=== PATIENT | female | born 1970 | race African-American/Black ===

== ENCOUNTER 2017-01-07 20:41 | Emergency (ER) | payer MEDICAID ==
[~2017-01-07] VITALS: Ht 157.5 cm; Wt 49.9 kg
[~2017-01-07 20:41] MED LIST: BUSPAR 10MG TAB10 MG PO; CIPRO 500MG TA500 MG PO; DEPAKOTE 500MG500 MG PO; ESTRADIOL0.5 MG PO; FLUTICASONE 50M16 GM; HYDROXYZINE 25M25 MG PO; IBUPROFEN 600M600 MG PO; LORATADINE 10MG10 M1 PO; MIRALAX(PO17 GM/1 PA PO; Oxycodone5 MG PO; RISPERDAL 1 MG T1 MG PO; TRAZADONE HYDR100 MG PO; Tramadol HCl50 MG PO; VENLAFAXINE HCL75 M1 PO; ZOFRAN ODT4 MG PO
--- OUTSIDE RECORDS SUMMARY | 2017-01-07 21:13 | External Medical Summary Rpt | CCD ---
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 13 20 20 70 RE EX 90 17 17 50 5 53 PH SO AR D MA DR CY 25 0 MG TA B DI 29 12 02 14 14 00 ME Ac VA 30 -2 -1 .0 00 D ti LP 00 1- 7- 00 13 CA ve RO 13 20 20 48 RE EX 90 16 17 51 1 03 PH SO AR D KRISTI DR CY 25 LL 0 C MG TA B RI 00 01 02 30 30 00 ME Ac SP 37 -2 -1 .0 00 D ti ER 83 5- 7- 00 13 CA ve ID 51 20 20 64 RE ON 39 17 17 48 E 1 93 PH 3 AR MG MA CY TA BL LL ET C VE 13 01 02 30 30 00 ME Ac NL 81 -2 -1 .0 00 D ti AF 10 3- 7- 00 13 CA ve AX 71 20 20 63 RE IN 59 17 17 18 E 0 83 PH HC AR L MA ER CY 22 LL 5 C MG TA B TR 50 01 02 30 30 00 ME Ac AZ 11 -1 -1 .0 00 D ti OD 10 9- 0- 00 13 CA ve ON 43 20 20 56 RE E 30 17 17 44 50 3 39 PH AR MG MA CY TA BL LL ET C TR 65 01 02 30 7 00 ME Ac AM 16 -1 -1 .0 00 D ti AD 20 6- 0- 00 13 CA ve OL 62 20 20 61 RE 71 17 17 11 HC 1 17 PH L AR 50 MA CY MG LL TA C BL ET VE 00 01 02 30 30 00 ME Ac NL 09 -2 -1 .0 00 D ti AF 37 1- 0- 00 13 CA ve AX 38 20 20 62 RE IN 59 17 17 97 E 8 58 PH HC AR L MA ER CY 75 LL C MG CA P MA 00 01 02 60 5 00 ME Ac PA 90 -1 -1 .0 00 D ti P 41 7- 0- 00 13 CA ve 32 98 20 20 61 RE 5 26 17 17 61 MG 1 58 PH AR TA MA BL CY ET LL C DI 62 01 02 90 30 00 ME Ac VA 75 -0 -1 .0 00 D ti LP 60 9- 0- 00 13 CA ve RO 79 20 20 56 RE EX 61 17 17 44 3 36 PH SO AR D MA DR CY 12 LL 5 C MG TA B PO 00 01 02 25 15 00 ME Ac LY 57 -1 -1 5. 00 D ti ET 40 0- 0- 00 13 CA ve HY 41 20 20 0 58 RE LE 20 17 17 02 NE 2 17 PH AR GL MA YC CY OL LL 33 C 50 PO WD IB 55 01 02 30 8 00 ME Ac UP 11 -0 -0 .0 00 D ti RO 10 2- 3- 00 13 CA ve FE 68 20 20 53 RE N 40 17 17 99 80 5 76 PH 0 AR MG MA CY TA BL LL ET C VE 00 12 01 30 30 00 ME Ac NL 09 -2 -2 .0 00 D ti AF 37 6- 0- 00 13 CA ve AX 38 20 20 49 RE IN 59 16 17 81 E 8 65 PH HC AR L MA ER CY 75 LL C MG CA P RI 00 12 01 30 30 00 ME Ac SP 37 -2 -2 .0 00 D ti ER 83 6- 0- 00 13 CA ve ID 51 20 20 49 RE ON 39 16 17 81 E 1 63 PH 3 AR MG MA CY TA BL LL ET C CY 00 12 01 30 10 00 ME Ac CL 60 -2 -1 .0 00 D ti OB 33 0- 3- 00 13 CA ve EN 07 20 20 48 RE ZA 82 16 17 23 AK 1 10 PH IN AR E MA 5 CY MG LL TA C BL ET TR 50 12 01 20 30 00 ME Ac AZ 11 -1 -1 .0 00 D ti OD 10 9- 3- 00 13 CA ve ON 43 20 20 46 RE E 30 16 17 94 50 1 29 PH AR MG MA CY TA BL LL ET C PO 00 12 01 25 15 00 ME Ac LY 57 -2 -1 5. 00 D ti ET 40 0- 3- 00 13 CA ve HY 41 20 20 0 48 RE LE 20 16 17 23 NE 2 00 PH AR GL MA YC CY OL LL 33 C 50 PO WD DO 45 12 01 60 30 00 ME Ac CU 80 -2 -1 .0 00 D ti SA 20 0- 3- 00 13 CA ve TE 48 20 20 48 RE 67 16 17 24 SO 8 77 PH DI AR UM MA CY 10 0 LL MG C SO FT GE L VE 00 11 01 4. 2 00 ME Ac NL 09 -2 -0 00 00 D ti AF 37 6- 9- 0 13 CA ve AX 38 20 20 35 RE IN 30 16 17 34 E 1 06 PH HC AR L MA 10 CY 0 MG LL C TA BL ET Results Labs Lab Lab Date Result Refere Interp Status Commen Order Detail nces retati t Range on Valproate SerPl-mCnc (05-21-2016 07:48) Valproa 31 50-100 complet te 017 ug/mL ed SerPl-m 07:48 Cnc Comment: (NOTE) Comment: Valproic acid Levels: Comment: . Comment: Therapeutic: 50 - 100 ug/mL Comment: Supratherapeutic: Greater than 120 ug/mL Procedures Procedure DOS Code Location Performer Comment [facility] PER SERVICE SERVICE STATUTE MILE AMBULANCE A0429 [facility] SERVICE 7 AMBULANCE AMBULANCE BLS SERVICE SERVICE EMERGENCY TRANSPORT BLOOD 57638 [facility] COUNT 7 [facility] COMPLETE INC INC AUTO&AUTO DIFRNTL WBC URNLS DIP 72745 [facility]O 7 [facility] STICK/TAB INC INC LET REAGENT AUTO MICROSCOP Y COMPREHEN 84209 [facility] CASTRO SIVE 7 [facility] [place] [address] GL[facility]IA [facility]STRO AMYLASE 7 [place] [address] [facility] CASTRO INFUSION 7 [facility] THERAPY/P INC INC ROPHYLAXI S /DX 1ST TO 1 HR THERAPEUT 02427 [facility] IC 7 [facility] INJECTION [place] [address] GL[facility] CASTRO INFUSION 7 [facility] THER INC INC PROPH ADDL SEQUENTIA L TO 1 HR CULTURE 57897 GL[facility] CASTRO BACTERIAL 7 [facility] INC [place] [address] [place] WILL ABDOMEN & 7 MEDICAL PELVIS IMAGING W/[place] [address] GLORIA CASTRO LIPASE 7 [place] [address] [facility] ABDOMINAL 7 MEDICAL REAL IMAGING TIME ASS W/IMAGE LIMITED CULTURE 37452 GLORIA GLORIA BACTERIAL 7 [facility] BLOOD INC INC AEROBIC W/ID ISOLATES GROUND A0425 [facility] 7 AMBULANCE AMBULANCE PER SERVICE SERVICE STATUTE MILE AMBULANCE A0429 [facility] SERVICE 7 AMBULANCE AMBULANCE BLS SERVICE [place] [address] GLORIA GUIDEN AMYLASE 7 [facility] INC COMPREHEN 94856 GLORIA CASTRO SIVE 7 [facility] METABOLIC INC INC PANEL URNLS DIP 71225 GL[facility]IA OCAMPOON 7 [facility] STICK/TAB INC INC LET REAGENT AUTO MICROSCOP Y BLOOD 54423 [facility]IA CASTRO COUNT 7 [facility] COMPLETE INC INC AUTO&[place] [address] GLORIA GLORIA LIPASE 7 [place] [address] [place] ABDOMEN & 7 MEDICAL PELVIS IMAGING W/O ASS CONTRAST MATERIAL NONEMERG A0120 FEDERATED FEDERATED TRNSPRT: 7 [facility] TRANSPORT TRANSPORT MTN ATION SER ATION SER AREA/OTH SYS NONEMERG A0120 LKLP CAC LKLP TRNSPRT: 7 INC [facility]ION 9 N MTN AREA/OTH SYS NONEMERG A0120 LKLP CAC LKLP TRNSPRT: 7 INC [facility] 9 N MTN AREA/[place] [address] [facility] SURG 7 [facility] GROSS&ANNE ROSCOPIC EXAM ANESTHESI 94120 ANESTHESI DIANA A 7 A GROUP INTRAPERI PRACTICE TONEAL LOWER ABD W/LAPS NOS TOTAL 38192 SEVEN BEAVEN ABDOMINAL 7 [facility] W/WO RMVL TUBE OVARY CYTP C/V 03728 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 THIN 7 Y NISHA OF Y NISHA OF LYR YARED YARED PREPJ SCR H H MNL RESCR PHYS IADNA 19772 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 7 Y NISHA OF Y NISHA OF [place] YARED YARED VIRUS H H HIGH-RISK TYPES US PELVIC 77994 SEVEN DEMOS-ASHISH 6 KYLE TESFAYE NONOBSTET [facility] [place] [address] SEVEN DEMOS-ASHISH TRANSVAGI 6 KYLE TESFAYE NAL [facility] C IADNA 98826 LAB NISHA LAB NISHA CARITO 6 YARED YARED SPECIES HOLDINGS HOLDINGS AMPLIFIED PROBE TQ IADNA 58461 LAB NISHA LAB NISHA TRICHOMON 6 YARED YARED HOLDINGS HOLDINGS VAGINALIS AMPLIFIED PROBE TECH IADNA 95576 LAB NISHA LAB NISHA NEISSERIA 6 YARED YARED HOLDINGS HOLDINGS GONORRHOE AE AMPLIFIED PROBE TQ IADNA NOS 49106 LAB NISHA LAB NISHA 6 YARED YARED AMPLIFIED HOLDINGS HOLDINGS PROBE TQ EACH ORGANISM IADNA 52806 LAB NISHA LAB NISHA CHLAMYDIA 6 YARED YARED HOLDINGS HOLDINGS [place] [address] PROFESSIO BRITTANY HEAD/BRAI 6 NAL GLE N W/[place] [address] PROFESSIO GRISEL HEAD/BRAI 6 NAL LYNDON N W/[place] [address] PROFESSIO GRISEL CERVICAL 6 NAL LYNDON SPINE W/[place] [address] PROFESSIO KAROLINA RAY HEAD/BRAI 6 NAL N W/[place] [address] RICHAR MCQUEEN TRANSVAGI 6 [place] [address] BROOKS BROOKS ABDOMEN & 6 TUS TUS PELVIS W/CONTRAS T MATERIAL ECG 46767 CATHIE BRAND ROUTINE 5 CATA CATA ECG W/LEAST 12 LDS I&[place] [address] RADIOLOGY DOERGER ABDOMEN & 5 KIR PELVIS ASSOCIATE W/CONTRAS S OF NOTH T MATERIAL AMB A0427 [facility] SERVICE 5 FIRE FIRE ALS DEPT DEPT EMERGENCY TRANSPORT LEVEL 1 GROUND A0425 [facility] 5 FIRE FIRE PER DEPT DEPT STATUTE MILE GROUND A0425 [facility] FIRE FIRE PER DEPT DEPT STATUTE MILE AMB A0427 [facility] 5 FIRE FIRE ALS DEPT DEPT EMERGENCY TRANSPORT LEVEL 1 GROUND A0425 [facility] 5 FIRE FIRE PER DEPT DEPT STATUTE MILE AMBULANCE A0429 [facility] 5 FIRE FIRE BLS DEPT DEPT EMERGENCY TRANSPORT AMBULANCE A0429 [facility] 5 FIRE FIRE BLS DEPT DEPT EMERGENCY TRANSPORT GROUND A0425 [facility] 5 FIRE FIRE PER DEPT DEPT STATUTE MILE GROUND A0425 [facility] 5 FIRE FIRE PER DEPT DEPT STATUTE MILE AMB A0427 [facility] SERVICE 5 FIRE FIRE ALS DEPT DEPT EMERGENCY TRANSPORT LEVEL 1 AMB A0427 [facility] 5 FIRE FIRE ALS DEPT DEPT EMERGENCY TRANSPORT LEVEL 1 GROUND A0425 [facility] 5 FIRE FIRE PER DEPT DEPT STATUTE MILE RADIOLOGI 91558 [facility] EX[facility] KAYLENE CHEST 2 ASSOCIATE VIEWS S OF NOTH FRONTAL&L ATERAL ECG [address] [facility] ROUTINE [address] ECG MED CTR W/LEAST 12 LDS I&R ONLY RADIOLOGI 75542 RADIOLOGY FERNANDA C EXAM 5 CORNELIO CHEST 2 ASSOCIATE VIEWS S OF NOTH FRONTAL&L ATERAL RADIOLOGI 60912 RADIOLOGY GULUZIAN C EXAM 5 MEME CHEST 2 ASSOCIATE VIEWS S OF NOTH FRONTAL&L ATERAL RADIOLOGI 14576 RADIOLOGY ARACELI C EXAM 4 CHR CHEST 2 ASSOCIATE VIEWS S OF NOTH FRONTAL&L ATERAL GROUND A0425 [facility] 4 FIRE FIRE PER DEPT DEPT STATUTE MILE AMB A0427 [facility] SERV[facility] 4 FIRE FIRE ALS DEPT [place] [address] RADIOLOGY DOERGER ABDOMEN & 4 KIR PELVIS ASSOCIATE W/O S OF NOTH CONTRAST MATERIAL AMB A0427 [facility] 4 FIRE FIRE ALS DEPT DEPT EMERGENCY TRANSPORT LEVEL 1 GROUND A0425 [facility] MILEAGE 4 FIRE FIRE PER DEPT DEPT STATUTE MILE RADIOLOGI 20264 MEDICAL HERFEL C EXAM 4 X-RAY INC GERALD CHEST 2 VIEWS FRONTAL&L ATERAL RADEX 03018 MEDICAL HUELSMAN RIBS 4 X-RAY INC LYNDON UNILATERA L 2 VIEWS RADIOLOGI 10222 MEDICAL MERANUS C EXAM 4 X-RAY INC JAM CHEST 2 VIEWS FRONTAL&[place] [address] RADIOLOGY DOERGER MAXILLOFA 4 KIR CIAL W/O ASSOCIATE CONTRAST S OF NOTH MATERIAL ECG 38[address] [facility] CHR ROUTINE 4 DARCY ECG MED CTR W/LEAST 12 LDS I&R ONLY RADIOLOGI 22783 RADIOLOGY NEILS REMY C EXAM 4 CHEST 2 ASSOCIATE VIEWS S [place] NOTH FRONTAL&[place] [address] RADIOLOGY HURST CHATA TRANSVAGI 4 NAL ASSOCIATE S OF NOTH [place] PELVIC 19329 RADIOLOGY HURST CHATA 4 NONOBSTET ASSOCIATE SAMARA S OF NOT REAL-TIME IMAGE COMPLETE RADEX 78274 MEDICAL BECKES SPINE 4 X-RAY INC ANG LUMBOSACR AL 2/3 VIEWS RADEX 07373 MEDICAL MERANUS SPINE 4 X-RAY [place] [address] [place] [address] MEDICAL BECKES HEAD/BRAI 4 X-RAY INC ANG N W/O CONTRAST MATERIAL RADEX 60824 MEDICAL HERFEL RIBS 4 X-RAY INC GERALD UNILATERA L 2 VIEWS AMB A0427 [facility] 4 FIRE FIRE ALS DEPT DEPT EMERGENCY TRANSPORT LEVEL 1 GROUND A0425 [facility] 4 FIRE FIRE PER DEPT DEPT STATUTE MILE GROUND A0425 [facility] 4 FIRE FIRE PER DEPT DEPT STATUTE MILE AMB A0427 [facility] SERV[facility] 4 FIRE FIRE ALS DEPT DEPT EMERGENCY TRANSPORT LEVEL 1 RADIOLOGI 09553 RACQUEL RACUQEL C 4 ANASTASIA ANASTASIA EXAMINATI ON CHEST SINGLE VIEW FRONTAL GROUND A0425 [facility] 4 FIRE FIRE PER DEPT DEPT STATUTE MILE AMB A0427 [facility] SERV[facility] 4 FIRE FIRE ALS DEPT DEPT EMERGENCY TRANSPORT LEVEL 1 RADIOLOGI 03858 FLINK CAR FLINK CAR C EXAM 4 CHEST 2 VIEWS FRONTAL&L ATERAL AMBULANCE A0429 [facility] SERV[facility] 4 FIRE FIRE BLS DEPT DEPT EMERGENCY TRANSPORT GROUND A0425 [facility] 4 FIRE [place] [address] ITRI ANASTASIA ITRI ANASTASIA ABDOMEN & 4 PELVIS W/CONTRAS T MATERIAL RADIOLOGI 17602 ANTHONY ANTHONY C EXAM 4 PANKAJ PANKAJ CHEST 2 VIEWS FRONTAL&[place] [address] PARSEE PARSEE HEAD/BRAI 4 ART ART N W/O CONTRAST MATERIAL GROUND A0425 [facility] 4 FIRE FIRE PER DEPT DEPT STATUTE MILE AMBULANCE A0429 [facility] 4 FIRE FIRE BLS DEPT DEPT EMERGENCY TRANSPORT GROUND A0425 [facility] 4 FIRE FIRE PER DEPT DEPT STATUTE MILE ECG 73355 [facility] ROUTINE [address] ECG MED CTR W/LEAST 12 LDS I&R ONLY AMB A0427 [facility] SERVICE 4 FIRE FIRE ALS DEPT DEPT EMERGENCY TRANSPORT LEVEL 1 RADIOLOGI 53797 MAYA MAYA C EXAM 4 ANI ANI CHEST 2 VIEWS FRONTAL&L ATERAL Encounters Encounter Start End Date Code Location Performer Type Date EMERGENCY 84328 JAVY SINGH, KANIKAT 7 7 PHYSICIAN JR VISIT S, PLLC HIGH SEVERITY& THREAT FUNCJ EMERGENCY 64305 GL[facility]IA 7 7 [facility] INC T VISIT HIGH/URGE NT SEVERITY HOSPITAL GLORIA - 7 7 [facility] OUTPATIEN [facility] GLORIA - 7 7 [facility] OUTPATIEN [facility] GLORIA - 7 7 [facility] OUTPATIEN [facility] EMERGENCY 92411 JAVY BRASHER DEPT 7 7 PHYSICIAN VISIT S, PLLC HIGH SEVERITY& THREAT FUNCJ EMERGENCY 50568 GLORIA 7 7 [facility] DEPARTMEN [facility] T VISIT HIGH/URGE NT SEVERITY EMERGENCY 17247 COMPASS GILDA 7 7 EMERGENCY DEPARTMEN T VISIT PHYSICIAN LOW/MODER S SEVERITY OFFICE 70037 [facility] OUTPATIEN 7 7 [facility] T VISIT [facility]OM[facility]' 25 [facility]ALTH C MINUTES OFFICE 11482 [facility] OUTPATIEN 7 7 [facility] T VISIT WOMEN 10 HEALTH C MINUTES OFFICE 60559 [facility] OUTPATIEN 6 6 [facility] BRIEN T NEW 20 WOMEN'S MINUTES HEALTH C EMERGENCY 37131 EMERGENCY STADNIK 6 6 DEPARTMEN PROFESSIO T VISIT NAL SERVI MODERATE SEVERITY EMERGENCY 17923 EMERGENCY STADNIK 6 6 DEPARTMEN PROFESSIO T VISIT NAL SERVI HIGH/URGE NT SEVERITY EMERGENCY 61921 EMERGENCY RAY KATHRIN DEPT 6 6 VISIT PROFESSIO HIGH NAL SERVI SEVERITY& THREAT FUNCJ EMERGENCY 04416 [facility] CARLIN GRAEME 6 6 EMERGENCY DEPARTMEN T VISIT PHYSICIAN HIGH/URGE S NT SEVERITY EMERGENCY 55622 [facility] JESSICA CHIKI 5 5 EMERGENCY DEPARTMEN T VISIT PHYSICIAN HIGH/URGE S NT SEVERITY EMERGENCY 10097 [facility] CYNDY 5 5 EMERGENCY KRI DEPARTMEN T VISIT PHYSICIAN HIGH/URGE S NT SEVERITY EMERGENCY 38022 HOUSTON ANNE HOUSTON ANNE 5 5 DEPARTMEN T VISIT HIGH/URGE NT SEVERITY EMERGENCY 59190 CATHIE BRAND DEPT 5 5 CATA CATA VISIT HIGH SEVERITY& THREAT FUNCJ EMERGENCY 29017 [facility] GREVER 5 5 EMERGENCY MAR DEPARTMEN T VISIT PHYSICIAN HIGH/URGE S NT SEVERITY EMERGENCY 72943 JORGE LUIS KANG KAYLENE DEPT 5 5 VISIT HIGH SEVERITY& THREAT FUNCJ EMERGENCY 14189 LOCASTO LOCASTO 5 5 DON DON DEPARTMEN T VISIT HIGH/URGE NT SEVERITY EMERGENCY 01991 COMPASS BINH 5 5 EMERGENCY KATHRIN DEPARTMEN T VISIT PHYSICIAN MODERATE S SEVERITY EMERGENCY 76277 COMPASS EVAN 5 5 EMERGENCY LAR DEPARTMEN T VISIT PHYSICIAN HIGH/URGE S NT SEVERITY EMERGENCY 14934 COMPASS TESFAYE GRAEME 5 5 EMERGENCY DEPARTMEN T VISIT PHYSICIAN HIGH/URGE S NT SEVERITY EMERGENCY 45802 [facility] NEEMA LIS 5 5 EMERGENCY DEPARTMEN T VISIT PHYSICIAN HIGH/URGE S NT SEVERITY EMERGENCY 48957 [facility] CYNDY 5 5 EMERGENCY KRI DEPARTMEN T VISIT PHYSICIAN HIGH/URGE S NT SEVERITY EMERGENCY 67715 COMPASS SOWER LYNDON 5 5 EMERGENCY DEPARTMEN T VISIT PHYSICIAN HIGH/URGE S NT SEVERITY EMERGENCY 93641 [facility] BRACKEN 5 5 EMERGENCY LYNDON DEPARTMEN T VISIT PHYSICIAN HIGH/URGE S NT SEVERITY EMERGENCY 17864 COMPASS SOWER LYNDON 5 5 EMERGENCY DEPARTMEN T VISIT PHYSICIAN MODERATE S SEVERITY EMERGENCY 22444 EMERGENCY ADE DEPT 5 5 MEME VISIT PROFESSIO HIGH NAL SERVI SEVERITY& THREAT FUNCJ EMERGENCY 75991 ST PETE Gay 4 4 DARCY MUÑOZTEODORO DEPARTMEN MED CTR T VISIT HIGH/URGE NT SEVERITY EMERGENCY 65843 ST BRANDIE 4 4 DARCY MAR DEPARTMEN MED CTR T VISIT HIGH/URGE NT SEVERITY EMERGENCY [address] [facility] 4 4 DARCYEVIN BEY DEPARTMEN MED CTR T VISIT HIGH/URGE NT SEVERITY EMERGENCY 85500 QUALIFIED ZACHARY 4 4 KUR DEPARTMEN EMERGENCY T VISIT SPECIALI LOW/MODER SEVERITY EMERGENCY 03825 [facility] DEPT 4 4 DARCY ANT VISIT MED CTR HIGH SEVERITY& THREAT FUNCJ EMERGENCY 94326 EMERGENCY GREWAL 4 4 CRUZ DEPARTMEN PROFESSIO T VISIT NAL SERVI HIGH/URGE NT SEVERITY EMERGENCY 20965 EMERGENCY ALLEN DEPT 4 4 GRAEEM VISIT PROFESSIO HIGH NAL SERVI SEVERITY& THREAT FUNCJ EMERGENCY 37088 EMERGENCY GREWAL 4 4 CRUZ DEPARTMEN PROFESSIO T VISIT NAL SERVI HIGH/URGE NT SEVERITY EMERGENCY 61592 [facility] 4 4 [facility]ISIT HIGH/URGE NT SEVERITY EMERGENCY 06731 EMERGENCY ZOË CORNELIO 4 4 DEPARTMEN PROFESSIO T VISIT NAL SERVI MODERATE SEVERITY EMERGENCY 58591 EMERGENCY CULYER 4 4 VIR DEPARTMEN PROFESSIO T VISIT NAL SERVI MODERATE SEVERITY EMERGENCY 65853 [facility] MING VISIT EMERGENCY HIGH SPECIALI SEVERITY& THREAT FUNCJ EMERGENCY 16033 EMERGENCY RAY KATHRIN 4 4 DEPARTMEN PROFESSIO T VISIT NAL SERVI MODERATE SEVERITY EMERGENCY 24296 ST CYNDY DEPT 4 4 DARCY KRI VISIT MED CTR HIGH SEVERITY& THREAT FUNCJ EMERGENCY 18113 ST CARLIN GRAEME DEPT 4 4 DARCY VISIT MED CTR HIGH SEVERITY& THREAT FUNCJ EMERGENCY 62969 EMERGENCY ABDULLAH 4 4 ANT DEPARTMEN PROFESSIO T VISIT NAL SERVI MODERATE SEVERITY EMERGENCY 49730 EMERGENCY RAY KATHRIN DEPT 4 4 VISIT PROFESSIO HIGH NAL SERVI SEVERITY& THREAT FUNCJ EMERGENCY 11712 ST TREVIÑO 4 4 DARCY HANEY DEPARTMEN MED CTR T VISIT LOW/MODER SEVERITY EMERGENCY 25981 LOCASTO LOCASTO 4 4 DON DON DEPARTMEN T VISIT HIGH/URGE NT SEVERITY EMERGENCY [address] ST TESFAYE BEDOLLA 4 4 DARCY DEPARTMEN MED CTR T VISIT HIGH/URGE NT SEVERITY EMERGENCY 30437 JORGE LUIS MAURICE 4 4 DEPARTMEN T VISIT HIGH/URGE NT SEVERITY EMERGENCY [address]70 ST SCHAFER 4 4 DARCY DAV DEPARTMEN MED CTR T VISIT HIGH/URGE NT SEVERITY EMERGENCY 35017 DENA FERNANDES 4 4 DAYO DAYO DEPARTMEN T VISIT HIGH/URGE NT SEVERITY EMERGENCY [address] ST [facility] DEPT 4 4 DARCY LAR VISIT MED CTR HIGH SEVERITY& THREAT FUNCJ EMERGENCY 54521 [facility] 4 4 DARCY LAR DEPARTMEN MED CTR T VISIT HIGH/URGE NT SEVERITY EMERGENCY 04810 OSWALD AKERS 4 4 REMY REMY DEPARTMEN T VISIT MODERATE SEVERITY EMERGENCY [address] ST TESFAYE BEDOLLA DEPT 4 4 DARCY VISIT MED CTR HIGH SEVERITY& THREAT FUNCJ EMERGENCY [address]144 ST HOANG 4 4 DARCY MEME DEPARTMEN MED CTR T VISIT MODERATE SEVERITY EMERGENCY 27463 LOCASTO LOCASTO 4 4 DON DON DEPARTMEN T VISIT HIGH/URGE NT SEVERITY EMERGENCY [address]00 ST TESFAYE BEDOLLA DEPT 4 4 DARCY VISIT MED CTR HIGH SEVERITY& THREAT FUNCJ EMERGENCY [address]307 ST PARRY MAX DEPT 4 4 DARCY VISIT MED CTR HIGH SEVERITY& THREAT FUNCJ EMERGENCY 74629 JENNI Lance 4 4 [facility] T VISIT HIGH/URGE NT SEVERITY EMERGENCY 86021 JUAN MARTINEZ 4 4 ANASTASIA OCONNOR [facility] T VISIT HIGH/URGE NT SEVERITY EMERGENCY 78519 ROSEMARIE HOUSTON ANNE DEPT 4 4 VISIT HIGH SEVERITY& THREAT FUNCJ EMERGENCY 27947 DENA FERNANDES 4 4 DAYO OSHEA [facility] T VISIT HIGH/URGE NT SEVERITY
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
[2017-01-07 21:18] LABS: URINE BILIRUBIN - DIPSTICK NEGATIVE (NEG); URINE BLOOD NEGATIVE (NEG)
--- OUTSIDE RECORDS SUMMARY | 2017-01-07 21:18 | External Medical Summary Rpt | CCD ---
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 98239 [facility] 5 5 MEME VISIT PROFESSIO HIGH NAL SERVI SEVERITY& THREAT FUNCJ EMERGENCY 92828 ST PETE Gay 4 4 DARCY [place] DEPARTMEN MED CTR T VISIT HIGH/URGE NT SEVERITY EMERGENCY 69466 [facility] 4 4 DARCY BEY DEPARTMEN MED CTR T VISIT HIGH/URGE NT SEVERITY EMERGENCY 81408 [facility] 4 4 DARCYEVIN BEY DEPARTMEN MED CTR T VISIT HIGH/URGE NT SEVERITY EMERGENCY 50375 QUALIFIED ZACHARY 4 4 KUR DEPARTMEN EMERGENCY T VISIT SPECIALI LOW/MODER SEVERITY EMERGENCY 43360 EMERGENCY GREWAL 4 4 CRUZ DEPARTMEN PROFESSIO T VISIT NAL SERVI HIGH/URGE NT SEVERITY EMERGENCY 02209 [facility] DEPT 4 4 DARCY NUNEZ VISIT MED CTR HIGH SEVERITY& THREAT FUNCJ EMERGENCY 63185 EMERGENCY BLOOMINGDALE DEPT 4 4 GRAEME VISIT PROFESSIO HIGH NAL SERVI SEVERITY& THREAT FUNCJ EMERGENCY 78819 EMERGENCY GREWAL 4 4 CRUZ DEPARTMEN PROFESSIO T VISIT NAL SERVI HIGH/URGE NT SEVERITY EMERGENCY 79460 ST KEN 4 4 DARCY ANT DEPARTMEN MED CTR T VISIT HIGH/URGE NT SEVERITY EMERGENCY 98880 EMERGENCY ZOË CORNELIO 4 4 DEPARTMEN PROFESSIO T VISIT NAL SERVI MODERATE SEVERITY EMERGENCY 99982 QUALIFIED ROHLING DEPT 4 4 MING VISIT EMERGENCY HIGH SPECIALI SEVERITY& THREAT FUNCJ EMERGENCY 66643 EMERGENCY CULYER 4 4 VIR DEPARTMEN PROFESSIO T VISIT NAL SERVI MODERATE SEVERITY EMERGENCY 26275 [facility] DEPT 4 4 DARCY KRI VISIT MED CTR HIGH SEVERITY& THREAT FUNCJ EMERGENCY 87420 EMERGENCY RAY KATHRIN 4 4 DEPARTMEN PROFESSIO T VISIT NAL SERVI MODERATE SEVERITY EMERGENCY 03855 ST TESFAYE BEDOLLA DEPT 4 4 DARCY VISIT MED CTR HIGH SEVERITY& THREAT FUNCJ EMERGENCY 56318 EMERGENCY [facility] 4 4 ANT DEPARTMEN PROFESSIO T VISIT NAL SERVI MODERATE SEVERITY EMERGENCY 07811 EMERGENCY RAY KATHRIN DEPT 4 4 VISIT PROFESSIO HIGH NAL SERVI SEVERITY& THREAT FUNCJ EMERGENCY 28965 [facility] 4 4 DARCY HANEY DEPARTMEN MED CTR T VISIT LOW/MODER SEVERITY EMERGENCY 89861 LOCASTO LOCASTO 4 4 DON DON DEPARTMEN T VISIT HIGH/URGE NT SEVERITY EMERGENCY 12413 ST TESFAYE BEDOLLA 4 4 DARCY DEPARTMEN MED CTR T VISIT HIGH/URGE NT SEVERITY EMERGENCY 99279 JORGE LUIS KANG KAYLENE 4 4 DEPARTMEN T VISIT HIGH/URGE NT SEVERITY EMERGENCY 43310 ST SCHAFER 4 4 DARCY LYNDON DEPARTMEN MED CTR T VISIT HIGH/URGE NT SEVERITY EMERGENCY 04928 DENA FERNANDES 4 4 DAYO OSHEA DEPARTMEN T VISIT HIGH/URGE NT SEVERITY EMERGENCY 92012 [facility] DEPT 4 4 DARCY LAR VISIT MED CTR HIGH SEVERITY& THREAT FUNCJ EMERGENCY 08138 OSWALD AKERS 4 4 REMY REMY DEPARTMEN T VISIT MODERATE SEVERITY EMERGENCY 36188 [facility] 4 4 DARCY LAR DEPARTMEN MED CTR T VISIT HIGH/URGE NT SEVERITY EMERGENCY 37795 ST CARLIN GRAEME DEPT 4 4 DARCY VISIT MED CTR HIGH SEVERITY& THREAT FUNCJ EMERGENCY 25443 ST HAONG 4 4 DARCY MEME DEPARTMEN MED CTR T VISIT MODERATE SEVERITY EMERGENCY 59924 LOCASTO LOCASTO 4 4 DON DON DEPARTMEN T VISIT HIGH/URGE NT SEVERITY EMERGENCY 78042 ST CARLIN GRAEME DEPT 4 4 DARCY VISIT MED CTR HIGH SEVERITY& THREAT FUNCJ EMERGENCY 53683 ST PARRY MAX DEPT 4 4 DARCY VISIT MED CTR HIGH SEVERITY& THREAT FUNCJ EMERGENCY 24177 JENNI Lance 4 4 DEPARTMEN T VISIT HIGH/URGE NT SEVERITY EMERGENCY 34067 JUAN MARTINEZ 4 4 ANASTASIA OCONNOR DEPARTMEN T VISIT HIGH/URGE NT SEVERITY EMERGENCY 21170 ROSEMARIE HOUSTON ANNE DEPT 4 4 VISIT HIGH SEVERITY& THREAT FUNCJ EMERGENCY 01548 DENA FERNANDES 4 4 DAYO DAYO DEPARTMEN T VISIT HIGH/URGE NT SEVERITY
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
--- OUTSIDE RECORDS SUMMARY | 2017-01-07 21:19 | External Medical Summary Rpt ---
Author Author MEG Villarreal, PathogenetixAYESHA Qello Organization [employer] Address Unknown Phone Unavailable Payers Section Payer Plan Name Group ID Member ID Coverage Coverage Start End Date Date DREW [id number] Mar 21 No [employer] HCARE 999 2011 informati E MDR OF [place] on in MDR source data
--- OUTSIDE RECORDS SUMMARY | 2017-01-07 21:19 | External Medical Summary Rpt | CCD ---
Demographics Home Phone Preferred Language Vincentian Marital Status Unknown Anabaptist Affiliation Unknown Race Unknown Ethnic Group Unknown Author Author , MEG WEAVER Address Unknown Phone [email or web address] Immunization Name Date Rout CVX Reac Dose Comm Prov Is Faci e tion ent ider Refu lity Give sed n TST- 10-1 96 999 Hist 1005 No 1005 PPD 2-20 oric 00 00 intr 16 al ader Info mal rmat ion - Sour ce Unsp ecif ied Infl 10-0 88 999 Hist 1005 No 1005 uenz 1-20 oric 00 00 a, 16 al UF Info rmat ion - Sour ce Unsp ecif ied Infl 09-1 Intr 88 999 Hist NAT No ANT uenz 2-20 ader oric LO LO a, 14 mal al UF Info rmat ion - Sour ce Unsp ecif ied PPV2 09-1 33 999 Hist NAT No NAT 3 2-20 oric LO LO 14 al Info rmat ion - Sour ce Unsp ecif ied
--- OUTSIDE RECORDS SUMMARY | 2017-01-07 21:19 | External Medical Summary Rpt ---
Author Author MEG Villarreal, PeekAYESHA Twingly Organization [employer] Address Unknown Phone Unavailable Payers Section Payer Plan Name Group ID Member ID Coverage Coverage Start End Date Date DREW [id number] Mar 21 No [employer] T[employer] HCARE 999 2011 informati E MDR OF [place] on in MDR source data
--- OUTSIDE RECORDS SUMMARY | 2017-01-07 21:19 | External Medical Summary Rpt | CCD ---
Demographics Home Phone Preferred Language Burmese Marital Status Unknown Advent Affiliation Unknown Race Unknown Ethnic Group Unknown Author Author , MEG WEAVER Address Unknown Phone [email or web address] Immunization Name Date Rout CVX Reac Dose [...] 09-1 Intr 88 999 Hist NAT No NAT uenz 2-20 ader oric LO LO a, 14 mal al UF Info rmat ion - Sour ce Unsp ecif ied PPV2 09-1 33 999 Hist NAT No NAT 3 2-20 oric LO LO 14 al Info rmat ion - Sour ce Unsp ecif ied
[2017-01-07] MEDS ORDERED: LORATADINE 10MG10 M1 PO (21:25)
[2017-01-07] MEDS ORDERED: DOCUSATE SODIU100 MG PO (21:25)
[2017-01-07] MEDS ORDERED: ESTRADIOL0.5 MG PO (21:26)
[2017-01-07] MEDS ORDERED: HYDROCHLOROTH12.5 M1 PO (21:26)
[2017-01-07 21:36] LABS: AMPHETAMINES/METAMPHETAMINES NEGATIVE ng/mL (<1000)
[2017-01-07 22:11] LABS: LYMPH # 3.2 K/mm3 (0.7-4.5); LYMPH % 53.9 % (10-50.0)
[2017-01-07 22:26] LABS: NEUTROPHILS 45 % (42-76)
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
[2017-01-07 23:21] VITALS: BP 119/83
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
== END 2017-01-07 23:38 | disposition home or self-care (01) ==
LOC: ER 20:41
PROVIDERS: Emergency Medicine
DX: S00.93XA Contusion of unspecified part of head, initial encounter (principal); Y08.02XA Assault by strike by baseball bat, initial encounter; Y93.89 Activity, other specified; Y92.199 Unspecified place in other specified residential institution as the place of occurrence of the external cause; F10.120 Alcohol abuse with intoxication, uncomplicated; S16.1XXA Strain of muscle, fascia and tendon at neck level, initial encounter; F17.210 Nicotine dependence, cigarettes, uncomplicated; Z79.51 Long term (current) use of inhaled steroids; Z79.899 Other long term (current) drug therapy; Z79.890 Hormone replacement therapy